=== PATIENT | female | born 1975 | race Hispanic/Latino ===

== ENCOUNTER 2017-09-01 08:27 | Outpatient (CLI) | payer BC ==
[2017-09-01] MEDS ORDERED: Gadobenate Dimeglumine 529 MG/1 ML (20ML VIAL) ONE (09:44)
--- NOTE | 2017-09-01 12:24 | MRI ---
PRE AND POST CONTRAST ENHANCED MRI BRAIN: 09/01/2017 COMPARISON: Previous MRI from [facility] from 01/07/2017. TECHNIQUE: Multiplanar, multisequence pre and post contrast enhanced MRI of the brain demonstrate again extensiv e diffuse and symmetric T2 signal abnormality throughout the cerebrum, cerebellum, and mid brain. FINDINGS: Some subtle areas of body and splenium corpus callosal areas of diffusion restriction seen. No abnor mal areas of contrast enhancement are seen. MRI appearance is stable and not significantly changed s kee the previous abnormal MRI from December 2016. No newly developed masses or lesions seen. IMPRESSION: Continued abnormal predominantly white matter areas of signal abnormality bilaterally and symmetrical ly, supratentorially and infratentorially. POS: [facility]
== END 2017-09-01 08:28 | disposition home or self-care (01) ==
LOC: MRI 08:27
PROVIDERS: ATTEND Student in an Organized Health Care Education/Training Program
DX: G36.0 Neuromyelitis optica [Devic] (principal); G37.9 Demyelinating disease of central nervous system, unspecified; R90.89 Other abnormal findings on diagnostic imaging of central nervous system
CPT/HCPCS: 70553; A9579

== ENCOUNTER 2019-11-02 15:19 | Outpatient (CLI) | payer BC ==
[~2019-11-02 15:19] MED LIST: Magnevist 469MG/ML 20 ML VIAL ONE
--- NOTE | 2019-11-02 16:53 | MRI ---
Exam: Brain MRI with and without contrast HISTORY: Acute headache. Patient has a history of neuromyelitis optica. COMPARISON: 01/25/2017, 09/01/2017 FINDINGS: Gradient echo sequence: No hemorrhage Calvarium: Appropriate T1 marrow signal intensity Midline brain parenchyma: Unremarkable Cerebrum:Stable/confluent T2 and FLAIR white matter hyperintensities, hyperintensities involving the white matter tracts in the midbrain and elena as well as white matter tracts in the left and right cerebellar hemispheres, along with abnormal signal involving portions of the corpus callosum. The ove rall degree of signal abnormality is unchanged. There is no associated restricted diffusion or enhancement. Ventricles: No evidence of hydrocephalus. Sinuses and mastoid air cells: Adequate aeration Diffusion: Central arterial flow is maintained. Absent restricted diffusion. Postcontrast images: No pathologic enhancement of the brain parenchyma. IMPRESSION: Essentially stable confluent white matter signal abnormality. No associated restricted diffusion or e nhancement. Transcribed Date/Time: 11/02/2019 5:05 PM
== END 2019-11-02 15:20 | disposition home or self-care (01) ==
LOC: BICMRI 15:19
PROVIDERS: ATTEND Psychiatry & Neurology Neurology
DX: R51 Headache (principal)
CPT/HCPCS: 70553; A9579

== ENCOUNTER 2023-01-22 08:29 | Outpatient (CLI) | payer BC | END 2023-01-22 08:30 | disposition home or self-care (01) | LOC: BICMAMMO 08:29 | PROVIDERS: ATTEND Nurse Practitioner Family | DX: Z12.31 Encounter for screening mammogram for malignant neoplasm of breast (principal) | CPT/HCPCS: 77063; 77067 ==

== ENCOUNTER 2024-10-26 09:49 | Outpatient (CLI) | payer BC | END 2024-10-26 09:50 | disposition home or self-care (01) | LOC: SCSMRI 09:49 | PROVIDERS: ATTEND Psychiatry & Neurology Neurology | DX: G36.0 Neuromyelitis optica [Devic] (principal) | CPT/HCPCS: 70553; 76376 ==